=== PATIENT | female | born 1975 | race Two or more races ===

== ENCOUNTER 2024-01-29 17:25 | Emergency (ER) | payer MEDICAID, SELFPAY ==
[2024-01-29 17:41] VITALS: BP 128/89; PULSE 92; RESP 20; TEMP 37.1; O2SAT 98
--- NOTE | 2024-01-29 17:47 | XR_ITS ---
Examination: Abdomen sonogram, Limited Date and time of exam: January 29, 2024 at 2045 hrs. Indications: Epigastric pain beginning 3 days ago Technique: Real-time abdalla scale transabdominal sonographic images of the upper abdomen obtained. Findings: Cholelithiasis, normal gallbladder wall 0.2 cm Common bile duct 0.4 cm Pancreatic head measures 4.2 cm Liver 17.2 cm no focal liver lesions Normal hepatopedal portal venous flow Patent IVC Impression: Cholelithiasis, negative for cholecystitis Prominent pancreatic head, if pancreatitis is a clinical consideration suggest CT scan abdomen pelvis intravenous contrast follow-up
--- NOTE | 2024-01-29 17:48 | PD.EDRME ---
Rapid Medical Screening Exam RME Arrival date/time: 01/29/24 17:25 48-year-old female presents with a barrage of complaints inclusive of cough with back pain abdominal pain nausea and bodyaches for several days Chief Complaint: Abdominal Pain Time Seen by Provider: 01/29/24 17:43 Vital signs: Vital Signs Temperature 98.7 F 01/29/24 17:41 Pulse Rate 92 01/29/24 17:41 Respiratory Rate 20 01/29/24 17:41 Blood Pressure 128/89 H 01/29/24 17:41 Pulse Oximetry (%) 98 01/29/24 17:41 Oxygen Delivery Method Room Air 01/29/24 17:41
[2024-01-29 18:05] LABS: Collection Type, Urine Clean Catch; RBC,Urine 0 /hpf (0-3)
[2024-01-29 18:17] LABS: Bilirubin,Urine Negative (Negative); Blood,Urine Negative (Negative); Clarity,Urine Clear (Clear/Hazy); Color,Urine Yellow (Lt Yel-Yel); Culture Indicated,Urine Not Indicated; Glucose, Urine Negative (Negative); Ketones,Urine Trace (Negative); Leukocyte Esterase,Urine Negative (Negative); Nitrite,Urine Negative (Negative); Protein,Urine 1+ (Neg - Trace); Specific Gravity,Urine 1.038 (1.001-1.035); Squamous Epithelial Cell,Urine 8 /hpf (0-5); WBC,Urine 2 /hpf (0-5)
[2024-01-29 18:22] LABS: Basophils % (Auto) 1 % (0-2.5); Eosinophils % (Auto) 1 % (0-10); Hematocrit 38.3 % (36.0-46.0); Immature Granulocytes % (Auto) 0 % (0-0); Immature Granulocytes Auto 0.02 Thou/mm3 (0.00-0.00); Lymphocytes # (Auto) 1.4 Thou/mm3 (1.0-4.8); Lymphocytes % (Auto) 24 % (10-50); Mean Corpuscular HGB Conc 33.9 g/dl (31.0-37.0); Mean Corpuscular Volume 85 fL (80-100); Monocytes # (Auto) 0.7 Thou/mm3 (0.0-0.8); Monocytes % (Auto) 12 % (0-12); Neutrophils # (Auto) 3.7 Thou/mm3 (1.8-7.7); Neutrophils % (Auto) 63 % (37-80); Nucleated Red Blood Cell % 0 /100 WBC (0); Platelet Count 189 Thou/mm3 (140-440); RDW Standard Deviation 41.1 fL (36.4-46.3); Red Blood Count 4.49 Miln/mm3 (4.00-5.20); White Blood Count 5.9 Thou/mm3 (3.6-11.0)
[2024-01-29 18:41] LABS: HCG,Qualitative Serum Negative
[2024-01-29 18:42] LABS: Alanine Aminotransferase 83 U/L (10-49); Albumin, Serum 4.6 gm/dL (3.5-5.0); Albumin/Globulin Ratio 1.7 (1.2-2.2); Alkaline Phosphatase 113 U/L (46-116); Anion Gap 8 (7-16); Aspartate Amino Transferase 60 U/L (0-34); BUN/Creatinine Ratio 11 Ratio (12-20); Bilirubin,Total 0.4 mg/dL (0.3-1.2); Blood Urea Nitrogen 9 mg/dL (9-23); Calcium 9.1 mg/dL (8.3-10.6); Calcium (Corrected) 9.1 mg/dL (8.5-10.1); Carbon Dioxide 28.5 mMol/L (20.0-31.0); Chloride 102 mMol/L (98-107); Creatinine (Component) 0.8 mg/dL (0.6-1.3); Globulin 2.7 gm/dL (2.3-3.5); Glucose 132 mg/dL (74-106); Lipase 42 U/L (12-53); Osmolality,Calculated 276 (275-295); Potassium 3.5 mMol/L (3.4-5.1); Sodium 138 mMol/L (136-145); Total Protein 7.3 gm/dL (5.7-8.2); eGFR > 60 See Note
--- NOTE | 2024-01-29 18:54 | EDNOTE_ITS ---
ED Abdominal Pain RME/HPI General Chief Complaint: Abdominal Pain Stated complaint: UPPER ABDOMINAL PAIN WITH SORE THROAT Time seen by provider: 01/29/24 17:43 Arrival date/time: 01/29/24 17:25 Limitations: no limitations RME / HPI RME / HPI narrative: 01/29/24 17:25 48-year-old female presents with a barrage of complaints inclusive of cough with back pain abdominal pain nausea and bodyaches for several days DR. HWANG MAIN ED EVALUATION: 48 year old female presents to the Emergency Department with complaint of epigastric pain onset 4 days, which is worse with coughing; she also has a sore throat and back pain. Has been taking Tylenol and Nyquil at night. Patient also states she feels dehydrated and when she drinks water she has a sour mouth. PMHx: Hypertension Social Hx: No tobacco, alcohol, or substance use. Related Data Previous Rx's ?Medication ?Instructions ?Recorded amoxicillin 500 mg capsule 500 mg PO TID #21 caps 12/06/17 diphenhydramine HCl 25 mg capsule 25 mg PO TID #20 caps 12/06/17 (Benadryl) prednisone 50 mg tablet 50 mg PO QDAY #5 tabs 12/06/17 naproxen 500 mg tablet (Naprosyn) 500 mg PO BID PRN pain #30 tabs 11/01/20 ibuprofen 600 mg tablet 600 mg PO TID PRN pain #30 tabs 02/25/22 azithromycin 250 mg tablet See Rx Instructions PO .COMPLEX #6 07/17/23 (Zithromax Z-Tanmay) tabs lisinopril 10 mg tablet 10 mg PO QDAY #30 tabs 07/17/23 meclizine 50 mg tablet (Antivert) 50 mg PO BID PRN dizziness #20 tabs 07/17/23 albuterol sulfate 90 mcg/actuation 2 inh inhalation Q6H PRN cough #1 01/29/24 breath activated powder inhaler ea benzonatate 200 mg capsule 200 mg PO TID PRN cough #10 caps 01/29/24 Allergies Allergy/AdvReac Type Severity Reaction Status Date / Time morphine Allergy Verified 01/29/24 17:34 Penicillins Allergy Verified 01/29/24 17:34 Review of Systems Review of Systems Systems Reviewed: All systems reviewed, normal except as documented Narrative Review of Systems: GEN: No fever, no chills, no weight loss EYES: No discharge, no visual changes, no pain HEENT: No ear pain, no congestion, + sore throat PULM: No shortness of breath, + cough CV: No chest pain, no dyspnea on exertion, no palpitations GI: No nausea, no vomiting, no diarrhea, + epigastric pain, no constipation : No frequency, no urgency and no dysuria MUSC/SKEL: No joint pain, + back pain SKIN: No rash PSYCH: No hallucinations, no depression HEME/LYMPH: No easy bleeding or bruising tendencies NEURO: No weakness, no headache Past Medical History Past Medical History CARDIAC: Positive Hypertension Social History SMOKING STATUS: Never smoker SUBSTANCE USE: does not use ALCOHOL: Never ED Exam General Limitations: Present no limitations General appearance: Present alert, in no apparent distress (in no acute distress) and other (looks dehydrated) Head Head exam: Present atraumatic, normocephalic and normal inspection Eye Eye exam: Present normal appearance, PERRL and EOMI ENT ENT exam: Present other (rhinorrhea; the back of the throat is minimally red) Neck Neck exam: Present normal inspection, full ROM and trachea midline Chest Chest inspection: Present normal inspection and symmetric chest wall rise Respiratory Respiratory exam: Present normal lung sounds bilaterally Cardiovascular Cardiovascular exam: Present regular rate, normal rhythm and normal heart sounds Abdominal Exam Abdominal exam: Present tenderness (epigastric tenderness on deep palpation), normal bowel sounds and other (large abdomen); Absent rebound Extremities Exam Extremities exam: Present normal inspection and full ROM Back Exam Back exam: Present normal inspection and full ROM Neurological Exam Neurological exam: Present alert, oriented X3 and CN II-XII intact Psychiatric Psychiatric exam: Present normal affect and normal mood Skin Skin exam: Present warm, dry, intact and normal color Course Quality Measures none Orders Category Date Time Status Bedside COVID-19 Antigen Test NOW Care 01/29/24 17:47 Active Bedside Influenza A&B Antigen Test NOW Care 01/29/24 17:47 Completed US abdomen limited Stat Exams 01/29/24 17:47 Ordered CBC Stat Lab 01/29/24 17:58 Completed CMP [Comprehensive Metabolic Panel] Stat Lab 01/29/24 17:58 Completed HCG,Qualitative Serum Stat Lab 01/29/24 17:58 Completed Lipase Stat Lab 01/29/24 17:58 Completed UA, C/S IF [Urinalysis, C/S if Indicated] Stat Lab 01/29/24 17:54 Completed Ketorolac Inj [Toradol Inj] Med 01/29/24 19:13 Discontinued 30 mg IVP X1 ONE Ondansetron Inj [Zofran Inj] Med 01/29/24 19:13 Discontinued 4 mg IV X1 ONE Sodium Chloride 0.9% 1000 ml [Ns] 1,000 ml Med 01/29/24 19:13 Discontinued IV 999 mls/hr Vital Signs Vital signs: Vital Signs Temperature 98.7 F 01/29/24 17:41 Pulse Rate 92 01/29/24 17:41 Respiratory Rate 20 01/29/24 17:41 Blood Pressure 128/89 H 01/29/24 17:41 Pulse Oximetry (%) 98 01/29/24 17:41 Oxygen Delivery Method Room Air 01/29/24 17:41 Abdominal Pain MDM MDM Narrative MDM Narrative:: Cynthia Ramos am scribing for and in the presence of Dr. Hwang. Patient data External records reviewed:: [facility] previous records (Reviewed last ED visit dated 07/17/23, discharged with the following: Bronchitis.) Clinical information provided by:: patient Social determinants that could affect healthcare access:: none Patient has the following chronic illnesses:: Hypertension How is presenting disease/condition affected by chronic disease/condition?: unef fected by Evaluation data The following diagnostics were reviewed and interpreted by me:: lab results and radiology exam(s) Lab and/or radiology exams considered but not ordered:: none Interpretation Summary: Influenza A + Medications / Prescriptions Medications or Prescriptions considered but not ordered:: none Medication administrations:: Medication Administration History Discontinued Medications Sodium Chloride (Ns) 1,000 mls @ 999 mls/hr IV .Q1H1M ONE Stop: 01/29/24 20:13 Last Admin: 01/29/24 20:27 Dose: 999 mls/hr Documented By: OA Ketorolac Tromethamine (Ketorolac Inj 30 Mg/Ml Vial) 30 mg IVP X1 ONE Stop: 01/29/24 19:14 Ondansetron HCl (Ondansetron Inj 2 Mg/Ml Inj 2 Ml) 4 mg IV X1 ONE; Protocol Stop: 01/29/24 19:14 see above Consultations Consultation(s) initiated? (list below): No Diagnosis Differential diagnosis abdominal pain: abdominal pain and other (dehydration, UTI, electrolyte imbalance) Most likely diagnosis given after review of the tests above:: Influenza A Admission Indicated Admission indicated?: not indicated Admission Request Was there a request for admission?: No Disposition Plan Disposition Plan: Discharge Discharge Attestation Discharge Attestation: The patient and all family members were given an opportunity to ask questions and understood the discharge instructions. Discharge instructions specifically effects, indications for sooner follow up or return to the emergency department, and the expected course of current diagnosis. Patient condition: Stable Discharge Plan Plan Patient Disposition: HOME (Self Care) Patient condition on transfer: Stable Prescriptions/Referrals Prescriptions/Med Rec: New albuterol sulfate 90 mcg/actuation aerosol powdr breath activated 2 inh inhalation Q6H PRN (Reason: cough) Qty: 1 0RF benzonatate 200 mg capsule 200 mg PO TID PRN (Reason: cough) Qty: 10 0RF No Action diphenhydramine HCl [Benadryl] 25 mg capsule 25 mg PO TID Qty: 20 0RF prednisone 50 mg tablet 50 mg PO QDAY Qty: 5 0RF amoxicillin 500 mg capsule 500 mg PO TID Qty: 21 0RF naproxen [Naprosyn] 500 mg tablet 500 mg PO BID PRN (Reason: pain) Qty: 30 0RF azithromycin [Zithromax Z-Tanmay] 250 mg tablet See Rx Instructions PO .COMPLEX Qty: 6 0RF Rx Instructions: For 250 mg dose pack: take 500 mg today (day 1), then 250 mg for 4 days (days 2-5) lisinopril 10 mg tablet 10 mg PO QDAY Qty: 30 0RF meclizine [Antivert] 50 mg tablet 50 mg PO BID PRN (Reason: dizziness) Qty: 20 0RF ibuprofen 600 mg tablet 600 mg PO TID PRN (Reason: pain) Qty: 30 0RF Referrals: Javed Gutierrez MD [Primary Care Provider] - In 1 week Problem List Clinical Impression: Influenza A Patient/Caregiver Discharge Instructions Education Materials: ED Influenza (Adult) Additional Instructions: Stay hydrated with Pedialyte and/or Gatorade. Use the inhaler as needed for cough. You can take [id number] Tylenol 650 mg 3 times a day as needed for fever and/or pain. Return to the emergency department sooner if you have fever despite Tylenol, you are feeling worse, or any other concerns. Print Language: Iranian Stand Alone Forms: Kerri Award Info., Work/School Release, Patient Portal Info Letter
[2024-01-29] MEDS: SODIUM CHLORIDE 0.9% 1000 ML 1,000 ML 999 ML IV (20:27)
[2024-01-29] MEDS: ONDANSETRON INJ 2 MG/ML INJ 2 ML 4 MG IV (21:01)
[2024-01-29] MEDS: KETOROLAC INJ 30 MG/ML VIAL IVP (21:02)
== END 2024-01-29 21:12 | disposition home or self-care (01) ==
PROVIDERS: Physician Assistant; Emergency Provider Emergency Medicine; PCP Family Medicine
DX: J10.1 Influenza due to other identified influenza virus with other respiratory manifestations (principal); R10.13 Epigastric pain
CPT/HCPCS: 36415; 76705; 80053; 81001; 83690; 84703; 85025; 87400; 87811; 96374; 96375; 99284; J1885; J2405; J7030